=== PATIENT | male | born 1955 | race Caucasian/White ===

== ENCOUNTER → 2019-11-17 | Outpatient (CLI) | payer OTHER ==
--- NOTE | 2019-11-17 16:27 | DIREP ---
PROCEDURE:XRAY SPINE LUMBAR MIN 4 VWS COMPARISON:None. INDICATIONS:M54.16 RADICULOPATHY, LUMBAR REGION, M46.1 SACROILIITIS, M46.1 MYALGIA TECHNIQUE:AP, lateral, bilateral oblique, and coned down lateral views of the lumbar spine are provided. In addition, lateral views in flexion extension were obtained. FINDINGS: ALIGNMENT:Lumbar lordosis is preserved. 5 mm retrolisthesis of L2 on L3. No change identified in flexion or extension. Minimal anterolisthesis of L5 on S1 VERTEBRAE:Mild anterior wedging of T12 noted. Severe facet sclerosis noted. DISK SPACES:Narrowing of the disc space with large ventral osteophytes throughout the lower thoracic and in the upper lumbar spine especially at L1-2, L2-3 and L3-4. Severe narrowing of the disc space with vacuum phenomenon at L5-S1 SPONDYLOLISTHESIS:None. SACROILIAC JOINTS:Normal. OTHER:Atheromatous calcifications in the aorta. CONCLUSION:Degenerative retrolisthesis of L2 on L3 without evidence for ligamentous instability. Minimal anterolisthesis of L5 on S1. 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 Mild anterior wedging of T12 noted. Dictated by: Jacoby Barnard MD on 11/17/2019 at 04:24 PM
== END | disposition home or self-care (01) ==
LOC: RAD 14:46
DX: M43.17 Spondylolisthesis, lumbosacral region (principal); M47.26 Other spondylosis with radiculopathy, lumbar region; M48.07 Spinal stenosis, lumbosacral region; M46.1 Sacroiliitis, not elsewhere classified; M79.18 Myalgia, other site; G57.01 Lesion of sciatic nerve, right lower limb
CPT/HCPCS: 72114